=== PATIENT | female | born 1945 | race Caucasian/White ===

== ENCOUNTER → 2020-12-24 12:20 | Outpatient (CLI) | payer MEDICARE, SELFPAY ==
--- NOTE | ~2020-12-24 | DEXA_ITS ---
Bone Density Report Name: Angelita Hope Age: 75 Sex: Female Ethnicity: White Date of : 1945 Indication: postmenopausal; screening for osteoporosis; height loss; asthma or emphysema; hysterectomy; Referring Provider: Terence Dsouza Study: Bone densitometry was performed. Exam Date: December 24, 2020 Accession number: [id number] Bone Density: Region BMD T-score Z-score Classification AP Spine (L1, L2, L3) 1.048 0.3 2.6 Normal Femoral Neck (Left) 0.648 -1.8 0.2 Osteopenia Total Hip (Left) 0.731 -1.7 0.0 Osteopenia Femoral Neck (Right) 0.536 -2.8 -0.8 Osteoporosis Total Hip (Right) 0.689 -2.1 -0.3 Osteopenia Total Hip Mean 0.710 -1.9 -0.2 Osteopenia World Health Organization criteria for BMD impression classify patients as: Normal (T-score at or above -1.0), Osteopenia (T-score between -1.0 and -2.5), or Osteoporosis (T-score at or below -2.5). 10-year Fracture Risk: FRAX not reported because: Some T-score for Spine Total or Hip Total or Femoral Neck at or below -2.5 Clinical Information Provided by Patient: Has used the following medications: Vitamin D, Calcium Has the following medical conditions: Asthma or Emphysema, Hysterectomy Patient maximum height was 62.7 Menopause Age: 51 Does not regularly consume dairy products Drinks caffeinated beverages Onset of menses at age 14 Number of children 6 Missed period for more than 6 months in a row Impression: The patient has osteoporosis, based on the Right Femoral Neck T-score. Discussion: INCREASED RISK OF FRACTURE. BONE DENSITY IS UNDESIRABLY LOW AT ONE OR MORE SKELETAL SITES, CONSISTENT WITH POSTMENOPAUSAL OSTEOPOROSIS. This patient's lowest T-score meets the World Health Organization's (WHO) criteria for osteoporosis at one or more sites (T-score -2.5 or below). In untreated patients, the risk of osteoporotic fracture increases approximately two-fold for each 1.0 SD decrease in T-score. Low bone density is not the only risk factor for fracture; also consider factors such as patient's age, frailty or poor health, risk of falling, risk of injury, previous osteoporotic fracture, family history of osteoporosis, cigarette smoking, low body weight, etc. Not everyone with low bone mineral density has osteoporosis; osteomalacia and other metabolic bone disorders should also be considered. Patients who have osteoporosis should be evaluated for specific diseases and conditions (secondary causes) that may cause or contribute to bone loss. The [place] [employer]ocr[employer] (AACE) and National Osteoporosis Foundation (NOF) recommend pharmacologic intervention for all postmenopausal women whose T-score is in this range. The patient should follow a healthful lifestyle (good nutrition with adequate calcium and vitamin D, and appropriate weight-barber
== END ==
PROVIDERS: PCP Family Medicine; Visit Provider Physician Assistant Medical
DX: Z78.0 Asymptomatic menopausal state (principal); M85.89 Other specified disorders of bone density and structure, multiple sites; M81.0 Age-related osteoporosis without current pathological fracture
CPT/HCPCS: 77080

== ENCOUNTER 2021-02-17 12:45 | Outpatient (CLI) | payer MEDICARE, SELFPAY ==
--- NOTE | ~2021-02-17 | XR_ITS ---
XR chest 2V DATE: 02/17/2021 13:59 INDICATION: History of uterine cancer TECHNIQUE: PA and lateral views COMPARISON: None FINDINGS: Mild to moderate elevation of the right leaf of the diaphragm. Normal heart size. Is aortic unfolding and calcification. No hilar or mediastinal enlargement. No pulmonary infiltrate or consolidation, pleural effusion or pulmonary vascular congestion or pneumo thorax. Diffuse osteopenia. Degenerative spurring of the thoracic spine. IMPRESSION: Mild to moderate elevation right leaf of diaphragm No active cardiac pulmonary disease Aortic atherosclerosis Diffuse osteopenia Degenerative spurring of the thoracic spine. Reviewed, dictated and finalized at location B.
--- NOTE | ~2021-02-17 | MR_ITS ---
EXAMINATION: MR brain/brain stem wo con DATE: 02/17/2021 13:41 INDICATION: Unspecified dementia without behavioral disturbance. TECHNIQUE: Magnetic resonance imaging (MRI) of the brain and brainstem was performed without intraven ous contrast. Sequences included sagittal and axial T1-weighted FSE, axial diffusion-weighted FS EPI, axial T2*-weighted GRE, axial T2-weighted FLAIR Propeller, and axial T2-weighted Propeller. Apparent diffusion coefficient (ADC) maps were created. COMPARISON: None. FINDINGS: There are scattered areas of nonspecific increased T2-weighted signal intensity in the cere bral white matter and ismael. There is no intracranial hemorrhage, acute infarction, or abnormal intrac ranial mass lesion. The ventricles are normal in size. The orbits are normal. There is mild mucosal t hickening in the paranasal sinuses. The mastoid air cells are normal. IMPRESSION: 1. Mild nonspecific cerebral white matter disease and pontine disease, which likely represents chroni c small vessel ischemic disease. Reviewed, dictated and finalized at location A. IMPRESSION: 1. Mild nonspecific cerebral white matter disease and pontine disease, which scott asif represents chronic small vessel ischemic disease.
== END 2021-02-17 12:46 | disposition home or self-care (01) ==
PROVIDERS: PCP Family Medicine; Visit Provider Physician Assistant Medical
DX: F03.90 Unspecified dementia, unspecified severity, without behavioral disturbance, psychotic disturbance, mood disturbance, and anxiety (principal); I70.0 Atherosclerosis of aorta; M85.88 Other specified disorders of bone density and structure, other site; R93.0 Abnormal findings on diagnostic imaging of skull and head, not elsewhere classified
CPT/HCPCS: 70551; 71046

== ENCOUNTER 2022-07-11 09:03 | Outpatient (CLI) | payer MEDICARE, SELFPAY ==
--- NOTE | 2022-07-15 16:34 | WPDHOLTEREM ---
Holter/Event Monitor Holter/Event Monitor Date of procedure: 07/11/22 Holter/Event Procedure: 24 Hr Holter Monitor Indications: Palpitations Conclusion: 1. 24 hour holter monitor on 07/11/22. 2. Predominant rhythm is sinus rhythm. HR range 45-133 bpm; average HR 80 bpm. 3. There are 421 premature supraventricular complexes and 20 supraventricular couplets. There are 2 episodes of atrial tachycardia, fastest at 115 bpm and longest lasted 4 beats. 4. There are 9 premature ventricular complexes and 3 ventricular triplets. No ventricular tachycardia. 5. There is first degree AV blocks. No significant pauses greater than 2 seconds. 6. No symptoms available for correlation.
== END 2022-07-11 09:04 | disposition home or self-care (01) ==
PROVIDERS: PCP Family Medicine; Visit Provider Family Medicine
DX: R00.2 Palpitations (principal); I44.0 Atrioventricular block, first degree
CPT/HCPCS: 93225; 93226

== ENCOUNTER → 2022-08-19 12:32 | Outpatient (CLI) | payer MEDICARE, SELFPAY ==
--- NOTE | ~2022-08-19 | MM_ITS ---
EXAMINATION: MM screening chandrika BI w tamela HISTORY: Screening mammogram TECHNIQUE: Craniocaudal and mediolateral oblique 3-D tomosynthesis images were obtained and synthetic 2-D images were generated. CAD analysis was submitted and interpreted. COMPARISON: No prior mammogram is available for comparison at this institution. BREAST PARENCHYMAL COMPOSITION: The breasts are almost entirely fatty. FINDINGS: There is no evidence of suspicious mass, calcification, or architectural distortion to sugg est malignancy in either breast. There has been no suspicious interval change. IMPRESSION: 1. No mammographic evidence of malignancy. 2. Recommend routine screening mammography in one year. BI-RADS Category 1: Negative Reviewed, dictated and finalized at location A.
== END ==
PROVIDERS: PCP Family Medicine; Visit Provider Family Medicine
DX: Z12.31 Encounter for screening mammogram for malignant neoplasm of breast (principal)
CPT/HCPCS: 77063; 77067

== ENCOUNTER → 2023-05-11 11:08 | Outpatient (CLI) | payer MEDICARE, SELFPAY ==
--- NOTE | ~2023-05-11 | DEXA_ITS ---
Bone Density Report Name: JENN GOMEZ Age: 77 Sex: Female Ethnicity: White Date of : 1945 Indication: osteopenia; monitoring treatment; height loss; hysterectomy; postmenopausal Referring Provider: SAMMY VILLATORO Study: Bone densitometry was performed. Exam Date: May 11, 2023 Accession number: [id number] Bone Density: Region BMD T-score Z-score Classification AP Spine (L1, L2, L3) 1.113 0.9 3.3 Normal Femoral Neck (Left) 0.675 -1.6 0.6 Osteopenia Total Hip (Left) 0.770 -1.4 0.5 Osteopenia Femoral Neck (Right) 0.612 -2.1 0.0 Osteopenia Total Hip (Right) 0.653 -2.4 -0.5 Osteopenia Total Hip Mean 0.712 -1.9 0.0 Osteopenia World Health Organization criteria for BMD impression classify patients as: Normal (T-score at or above -1.0), Osteopenia (T-score between -1.0 and -2.5), or Osteoporosis (T-score at or below -2.5). 10-year Fracture Risk: FRAX not reported because: Treated for osteoporosis Previous Exams: Region Exam Age BMD T-score BMD Change BMD Change Date g/cm2 vs Baseline vs Previous AP Spine(L1, L2, L3) 05/11/2023 77 1.113 0.9 0.065* 0.065* 12/24/2020 75 1.048 0.3 Total Hip(Left) 05/11/2023 77 0.770 -1.4 0.039* 0.039* 12/24/2020 75 0.731 -1.7 Total Hip(Right) 05/11/2023 77 0.653 -2.4 -0.036* -0.036* 12/24/2020 75 0.689 -2.1 *Denotes significance at 95% confidence level, LSC for AP Spine = 0.022 g/cm2, LSC for Total Hip = 0.027 g/cm2 Clinical Information Provided by Patient: Is being treated for osteoporosis Has used the following medications: Vitamin D, Calcium, MTV, RX bone med name unknown Has the following medical conditions: Hysterectomy, asthma treated with OTC meds, cancer in the past Patient maximum height was 62.7 Menopause Age: 51 Does not regularly consume dairy products Drinks caffeinated beverages Onset of menses at age 14 Number of children 6 Missed period for more than 6 months in a row Impression: The patient has low bone mass, based on the Right Total Hip T-score. The BMD for the Total Hip(Right) decreased, changing by -0.036 since the last DXA exam. Discussion: SIGNIFICANT BONE LOSS OBSERVED. Adherence to therapy (including calcium and vitamin D intake) should be assessed. If compliance is not a factor, review management and exclusion of secondary causes of bone loss. It is important to ask patients whether they are taking their me
== END ==
PROVIDERS: PCP Family Medicine; Visit Provider Family Medicine
DX: M81.0 Age-related osteoporosis without current pathological fracture (principal); Z79.01 Long term (current) use of anticoagulants; M85.852 Other specified disorders of bone density and structure, left thigh; M85.851 Other specified disorders of bone density and structure, right thigh
CPT/HCPCS: 77080

== ENCOUNTER 2023-05-27 09:50 | Emergency (ER) | payer MEDICARE, SELFPAY ==
[2023-05-27 10:01] VITALS: BP 132/81; PULSE 67; RESP 16; TEMP 36.8; O2SAT 98
--- NOTE | 2023-05-27 10:19 | ED.URI ---
HPI - URI/Sore Throat General Chief Complaint: Upper Respiratory Infection Stated Complaint: Cough Source: patient, RN notes reviewed and old records reviewed Mode of arrival: ambulatory Limitations: no limitations History of Present Illness HPI Narrative: 77-year-old female presents with complaint of productive cough, congestion, sinus pressure, headache that started 3-4 weeks ago. Patient was seen in another urgent care that time and given amoxicillin 875mg for 10 days, patient states symptoms improved but never completely resolved. Patient states symptoms are worse now patient states coughing up green thick phlegm. MD elicited complaint: cough Onset (ago): week(s) (2-3) Consistency: constant Severity: moderate Description of mucous: green Related Data Home Medications Medication Instructions Recorded Confirmed mecobalamin (vitamin B12) 1,000 3,000 mcg sublingual DAILY 10/07/20 05/27/23 mcg disintegrating tablet,sublingual ascorbic acid (vitamin C) 250 mg 250 mg PO DAILY 07/04/22 05/27/23 tablet calcium 600 mg-D3 800 unit-mag11 1 tablet PO DAILY 07/04/22 05/27/23 50 kr-gijt-hchjyu-hayes-s.borat tablet (Caltrate 600-D Plus Minerals) wmyacrnm-pqf-thcst ac 400 2 tablet PO DAILY 07/04/22 05/27/23 mcg-calcium carb 500 mg-vit K1 20 mcg tablet (Women's 50 Plus Multivitamin) tpyulrwq-nqj-nakai5 250 mg-dha 90 1 cap PO DAILY 07/04/22 05/27/23 mg-epa 160 do-zbgo-ylgc-zeax capsule (Ocuvite Adult 50 Plus) Allergies Allergy/AdvReac Type Severity Reaction Status Date / Time atorvastatin Allergy Unknown cough Verified 05/27/23 10:14 codeine Allergy Unknown Unknown Verified 05/27/23 10:14 fentanyl Allergy Unknown Unknown Verified 05/27/23 10:14 levothyroxine sodium Allergy Unknown cough Verified 05/27/23 10:14 lisinopril Allergy Unknown cough Verified 05/27/23 10:14 metformin Allergy Unknown just Verified 05/27/23 10:14 doesn't feel right metoprolol Allergy Unknown cough Verified 05/27/23 10:14 Review of Systems Constitutional: Constitutional: Reports no additional constitutional complaints, Reports body ache(s), Denies chills, Reports fatigue, Denies fever(s) and Denies headache(s) Eyes: Eyes: Reports no additional eye complaints and Denies blurry vision ENT: Reports system reviewed and no additional complaints, except as documented, Denies vertigo, Denies dizziness, Denies ear discharge, Denies otalgia, Denies facial pain, Denies headache(s), Reports nasal congestion, Denies nasal discharge, Reports sinus pain, Reports sinus pressure and Denies sore throat Cardiovascular: Cardiovascular: Reports no additional cardiovascular complaints, Denies chest pain, Denies chest pain at rest, Denies rapid heart rate and Denies dyspnea Respiratory: Respiratory: Reports no additional respiratory complaints, Reports chest congestion, Reports cough, Denies pain on inspiration, Denies pain with cough and Denies dyspnea Gastrointestinal: Gastrointestinal: Denies abdominal pain, Denies diarrhea, Denies nausea and Denies vomiting Integumentary/Breasts: Skin/Breast: Denies rash Neurologic: Reports system reviewed and no additional complaints, except as documented, Denies vertigo, Denies dizziness and Denies headache(s) Endocrine: Endocrine: Denies fatigue [facility] Past Medical History Medical History Disorder of kidney and ureter, unspecified Endometrial cancer Malignant neoplasm of uterus, part unspecified Family History Family History Mother Hypertension Sibling Family history of type 2 diabetes mellitus Family history of respiratory disorder Family history of diabetes mellitus in first degree relative Patient's brother is Father Patient's father is in good health Other Diabetes mellitus Social History Social History (Reviewed 01/17/23 @ 13:12 by Mayuri Monroy
== END 2023-05-27 10:27 | disposition home or self-care (01) ==
PROVIDERS: Emergency Provider Registered Nurse; PCP Family Medicine
DX: J06.9 Acute upper respiratory infection, unspecified (principal); Z85.42 Personal history of malignant neoplasm of other parts of uterus
CPT/HCPCS: 99213; G0463

== ENCOUNTER 2023-07-29 11:00 | Emergency (ER) | payer MEDICARE, SELFPAY ==
[2023-07-29 11:26] VITALS: BP 148/94; PULSE 67; RESP 16; TEMP 37.3; O2SAT 99
--- NOTE | 2023-07-29 11:34 | ED.GENADULT ---
HPI - General Adult General Chief complaint: Upper Respiratory Infection Stated complaint: COUGH/COVID EXPOSURE Source: patient, RN notes reviewed and old records reviewed Mode of arrival: ambulatory Limitations: no limitations History of Present Illness HPI narrative: 77-year-old female presents to [facility] requesting COVID testing. Patient states has been tested earlier today and was positive. Patient states has had a cough for approximately 2 weeks without them for allergies. Patient denies any other symptoms. Patient is requesting back Slo-bid if positive. Related Data Home Medications Medication Instructions Recorded Confirmed mecobalamin (vitamin B12) 1,000 3,000 mcg sublingual DAILY 10/07/20 07/29/23 mcg disintegrating tablet,sublingual ascorbic acid (vitamin C) 250 mg 250 mg PO DAILY 07/04/22 07/29/23 tablet calcium 600 mg-D3 800 unit-mag11 1 tablet PO DAILY 07/04/22 07/29/23 50 pr-nrjb-ukooqp-hayes-s.borat tablet (Caltrate 600-D Plus Minerals) hpylauqa-dgm-axjtl ac 400 2 tablet PO DAILY 07/04/22 07/29/23 mcg-calcium carb 500 mg-vit K1 20 mcg tablet (Women's 50 Plus Multivitamin) duhzombp-hop- 250 mg-dha 90 1 cap PO DAILY 07/04/22 07/29/23 mg-epa 160 bu-onbx-vhzc-zeax capsule (Ocuvite Adult 50 Plus) Allergies Allergy/AdvReac Type Severity Reaction Status Date / Time atorvastatin Allergy Unknown cough Verified 07/29/23 11:25 codeine Allergy Unknown Unknown Verified 07/29/23 11:25 fentanyl Allergy Unknown Unknown Verified 07/29/23 11:25 levothyroxine sodium Allergy Unknown cough Verified 07/29/23 11:25 lisinopril Allergy Unknown cough Verified 07/29/23 11:25 metformin Allergy Unknown just Verified 07/29/23 11:25 doesn't feel right metoprolol Allergy Unknown cough Verified 07/29/23 11:25 Review of Systems Constitutional: Constitutional: Reports no additional constitutional complaints, Denies body ache(s), Denies chills, Denies fatigue, Denies fever(s) and Denies headache(s) Eyes: Eyes: Reports no additional eye complaints and Denies blurry vision ENT: Reports system reviewed and no additional complaints, except as documented, Denies vertigo, Denies dizziness, Denies ear discharge, Denies otalgia, Denies facial pain, Denies headache(s), Denies nasal congestion, Denies nasal discharge, Denies sinus pain, Denies sinus pressure and Denies sore throat Cardiovascular: Cardiovascular: Reports no additional cardiovascular complaints, Denies chest pain, Denies chest pain at rest, Denies rapid heart rate and Denies dyspnea Respiratory: Respiratory: Reports no additional respiratory complaints, Denies chest congestion, Reports cough, Denies pain on inspiration, Denies pain with cough and Denies dyspnea Gastrointestinal: Gastrointestinal: Denies abdominal pain, Denies diarrhea, Denies nausea and Denies vomiting Integumentary/Breasts: Skin/Breast: Denies rash Neurologic: Reports system reviewed and no additional complaints, except as documented, Denies vertigo, Denies dizziness and Denies headache(s) Endocrine: Endocrine: Denies fatigue PMF Past Medical History Medical History Disorder of kidney and ureter, unspecified Endometrial cancer Malignant neoplasm of uterus, part unspecified Family History Family History Mother Hypertension Sibling Family history of type 2 diabetes mellitus Family history of respiratory disorder Family history of diabetes mellitus in first degree relative Patient's brother is Father Patient's father is in good health Other Diabetes mellitus Social History Social History Smoking status: Unknown if ever smoked Alcohol intake: never Lack of Transportation: No Lack of Food: Never True Current Housing: I Have Housing Concerned Abou
== END 2023-07-29 12:05 | disposition home or self-care (01) ==
PROVIDERS: Emergency Provider Registered Nurse; PCP Family Medicine
DX: J30.2 Other seasonal allergic rhinitis (principal); Z20.822 Contact with and (suspected) exposure to COVID-19; Z85.42 Personal history of malignant neoplasm of other parts of uterus
CPT/HCPCS: 87426; 87804; 99213; G0463

== ENCOUNTER 2023-10-06 07:51 | Outpatient (CLI) | payer MEDICARE, SELFPAY ==
[2023-10-06 15:38] LABS: Anion Gap 6 mmol/L (4-12); Blood Urea Nitrogen 20 mg/dL (7-17); Calcium 9.6 mg/dL (8.4-10.2); Carbon Dioxide 32 mmol/L (22-30); Chloride 103 mmol/L (98-107); Estimated Glomerular Filt Rate > 60; Glucose 81 mg/dL (65-110); Potassium 4.3 mmol/L (3.4-5.0); Sodium 141 mmol/L (137-145)
[2023-10-06 16:22] LABS: Creatinine Urine 56.3 mg/dL
[2023-10-06 16:29] LABS: MALB Creatinine Ratio 21.3 mg/g (0-30)
[2023-10-06 16:43] LABS: Hemoglobin A1C 5.9 % (<5.7)
== END 2023-10-06 07:52 | disposition home or self-care (01) ==
PROVIDERS: PCP Family Medicine; Visit Provider Nurse Practitioner Family
DX: E11.9 Type 2 diabetes mellitus without complications (principal)
CPT/HCPCS: 36415; 80048; 82043; 83036

== ENCOUNTER 2025-04-11 00:55 | Day surgery (SDC) | payer MEDICARE, SELFPAY ==
--- NOTE | 2025-04-02 10:54 | PC.NURSE ---
[facility] has started construction of its new state of the art ER which will open Spring 2026. With this, we anticipate parking may be a challenge for some our surgical patients and families. Parking spaces are limited but are available for all Surgical, obstetrics, and ER patients sharing this lot. If you arrive and find you are having a hard time finding a parking space, please note that we understand the challenges, please drive around the hospital and park near Hospital Entrance 1. When you enter this entrance, you can ask a volunteer to direct or take you back to the surgical waiting area to check in. We appreciate everyone?s understanding of these expected challenges while we build for your future. Report to the Outpatient Waiting Room, entrance under the green pavilion located off [address], at time __8:15 AM on date __04/11/25 . Planned Procedure Time: __10:15 AM .? Time changes happen often and if your time is changed the preop area will call you the afternoon before. NOTHING TO EAT AFTER MIDNIGHT , NOTHING TO DRINK 8 HOURS PRIOR TO SURGERY PER DR HUSAIN - You and your visitor will be asked to self-screen and do not enter if you have any COVID symptoms. Please call surgeon if you need to reschedule. - A mask is optional within the hospital at this time. Take only the following medications with a SIP of water on the morning of surgery: ___INHALER IF NEEDED DO NOT STOP ANY OF YOUR OTHER PRESCRIPTION MEDICATIONS PRIOR TO SURGERY EXCEPT THE FOLLOWING Hold all vitamins and supplements for 3 days per anesthesiologist.LAST DOSE 04/07/25 Medications to discontinue per physician NONE Please no make-up, nail malagasy, hairspray, perfume, deodorant, or body powder the day of surgery.? No jewelry (including any body piercings) or valuables the day of surgery, leave them at home.? Please take a shower or bath the night before, or the morning of, surgery with an antibacterial soap.? Wear comfortable, loose fitting clothing.? Children are encouraged to wear pajamas. - Jewelry must be removed prior to entering the operating room.? Rings and piercings that are not removed may be cut off. - The hospital will not accept responsibility for valuables.? - Please leave all valuables, including medications, at home the day of surgery. If you are going home after surgery, a licensed driver license technician must drive you home.? - NO public transportation without another adult if you receive anesthesia. - We recommend that an adult stay with you for 24 hours following discharge. - We also recommend that you do not drive, make important decision, drink alcoholic beverages, or take any drugs that were not prescribed by your health care provider for at least 24 hours after your discharge time. For Pediatric surgeries, we recommend two adults accompany the child home. Follow any additional instructions given to you from your surgeon. Telephone instructions given to __DAUGHTER IN LAW_GONZALEZ ROSALES and asked if any additional questions and then verbalized understanding. Patient advised to call surgeon office or pre surgery nurse liaison [phone] if any additional questions.
[2025-04-02 11:21] VITALS: BMI 30.3
--- NOTE | 2025-04-11 06:48 | P.OP_ITS ---
Procedure Note - Detailed Date of Procedure 04/11/25 Pre-op Diagnosis Mass Rt Thigh Post-op Diagnosis Same Procedure Performed excision right thigh mass Surgeon Gerald Bhatt MD Pharmacy Buyer freda kaplan pa-c Anesthesia MAC Description of Procedure Patient was seen in the preoperative holding area where the right thigh mass was marked and the consent form was signed. Patient was taken back to the operating room on the stretcher in the right lateral decubitus position. Time-out was performed with Anesthesia, surgeon, and staff agree on patient's name, site, and surgery to be performed. SCDs were placed on the lower extremities and inflated. Antibiotics given IV. After anesthesia administered sedation I injected 8 cc of 1% lidocaine with epinephrine and 0.5% Marcaine plain. The surgical site was prepped and draped in the usual sterile fashion. I proceeded with making elliptical incision around the thinned affected skin overlying the mass extending proximally and distally for expected dog-ears to improve closure. Littler scissors were used to spread through subcutaneous tissue down to and circumferentially dissecting around the cyst-like mass. Bovie cautery was used to further resect the mass from the subcutaneous tissue. I irrigated with normal saline. Hemostasis was obtained with Bovie cautery. Closure with 3-0 Vicryl for dermis and 3-0 monocryl for subcuticular. length of closure was 6cm A dressing of Mastisol, Steri-Strips, 4 x 4, and pressure dressing was applied. The patient was awakened from anesthesia and transferred to the recovery room in stable condition. Complications: None Estimated blood loss: 2 cc Disposition: Patient tolerated the procedure well and will go home later today Freda Kaplan PA-C was essential for positioning, retraction, closure and dressing placement. [facility] [place] - Charge Forward: Surgery Billing ([id number] same for freda adding )
--- NOTE | 2025-04-11 06:48 | WPDHPUPDATE1 ---
History and Physical Update Update Date/Time: 04/11/25 06:48 Patient seen and examined in pre-operative holding area. No interval change in medical history or symptoms. Patient recalls previous discussion of benefits and alternatives to procedure. Continues to desire to proceed with right thgh mass excision . Reviewed procedure, post-op expectations and risks including but not limited to bleeding, infection, injury to tendon/nerve/vessel, decreased hand function, stiffness, RSD, no change or worsening of symptoms, recurrence. I discussed the possible use of assistants and their participation in the case. Patient stated understanding and signed the consent form wishing to proceed.
[2025-04-11 08:45] VITALS: BP 157/60; PULSE 60; RESP 16; TEMP 36.6; O2SAT 96
[2025-04-11] MEDS: LACTATED RINGERS 1,000 ML 30 ML IV CONT (08:45)
[2025-04-11] MEDS: ACETAMINOPHEN 500 MG TABLET 1000 MG PO (08:45)
--- NOTE | 2025-04-11 08:49 | WPDANESEPPF ---
Anes - Initial Pre Proc Eval Procedure: Operation Date: 04/11/25 10:15 Proposed Procedures p Right Posterior Thigh Mass Excision - Gerald Bhatt MD Date/Time: 04/11/25 08:49 Surgeon: Gerald Bhatt MD Pre Op Diagnosis: Mass Rt Thigh Patient Data Age: 79 Gender: F Height: 1.6 m Weight: 77.6 kg Allergies Allergy/AdvReac Type Severity Reaction Status Date / Time atorvastatin Allergy Unknown cough Verified 04/10/25 12:55 codeine Allergy Unknown Unknown Verified 04/10/25 12:55 fentanyl Allergy Unknown Unknown Verified 04/10/25 12:55 levothyroxine sodium Allergy Unknown cough Verified 04/10/25 12:55 lisinopril Allergy Unknown cough Verified 04/10/25 12:55 metformin Allergy Unknown just Verified 04/10/25 12:55 doesn't feel right metoprolol Allergy Unknown cough Verified 04/10/25 12:55 Home Medications ?Medication ?Instructions ?Recorded ?Confirmed ?Type mecobalamin (vitamin B12) 1,000 3,000 mcg sublingual DAILY 10/07/20 04/02/25 History mcg disintegrating tablet,sublingual ascorbic acid (vitamin C) 250 mg 250 mg PO DAILY 07/04/22 04/02/25 History tablet calcium 600 mg-D3 800 unit-mag11 1 tablet PO DAILY 07/04/22 04/02/25 History 50 fe-pgrb-pntmrr-hayes-s.borat tablet (Caltrate 600-D Plus Minerals) burbllka-qju-wrzud ac 400 2 tablet PO DAILY 07/04/22 04/02/25 History mcg-calcium carb 500 mg-vit K1 20 mcg tablet (Women's 50 Plus Multivitamin) iwgdpgbn-pzs-cxean7 250 mg-dha 90 1 cap PO DAILY 07/04/22 04/02/25 History mg-epa 160 hx-uslo-sqer-zeax capsule (Ocuvite Adult 50 Plus) cholecalciferol (vitamin D3) 125 5,000 unit PO DAILY #90 caps 05/19/23 04/02/25 Rx mcg (5,000 unit) capsule amlodipine 2.5 mg tablet 5 mg (2 x 2.5 mg) PO DAILY #180 08/08/23 04/02/25 Rx tabs albuterol sulfate 90 mcg/actuation 1 inh inhalation Q4H PRN shortness 10/14/24 04/02/25 Rx aerosol inhaler (Ventolin HFA) of breath or wheezing #6.7 grams losartan 25 mg tablet 25 mg PO DAILY #90 tabs 10/14/24 04/02/25 Rx alendronate 70 mg tablet (Fosamax) 70 mg PO WEEKLY #4 tabs 02/10/25 04/02/25 Rx benzonatate 200 mg capsule 200 mg PO TID #30 caps 02/15/25 04/02/25 Rx Patient hx anesthesia problems: none Family hx anesthesia problems: none Results Review: All pre-operative results and documents have been reviewed as part of the pre-operative evaluation. [facility] Past Medical History Medical History Disorder of kidney and ureter, unspecified Endometrial cancer Malignant neoplasm of uterus, part unspecified Family History Family History Mother Hypertension Sibling Family history of type 2 diabetes mellitus Family history of respiratory disorder Family history of diabetes mellitus in first degree relative Patient's brother is Father Patient's father is in good health Other Diabetes mellitus Social History Social History (Updated 02/17/25 @ 09:22 by Deandra Trujillo) Social History: Caffeine-none Smoking status: Never smoker Alcohol intake: never Substance use: never Substance use type: does not use Lack of Transportation: No Lack of Food: Never True Current Housing: I Have Housing Concerned About Future Housing: No Difficulty Paying Gas/Electric Bills: No Difficulty Paying for Meds: No Currently Unemployed: No Education: Trade/Vocational Certificate Difficulty w/ Childcare or Family Care: No Living arrangements: with family Spiritual care concerns: No Anes - Eval Final PreProcedure Day of Procedure 04/11/25 08:49 Patient weight: obese Heart: regular rate and rhythm Lungs: clear to auscultation Airway: Mallampati scale class II Neurological: alert and oriented Last oral intake: >/= 8 hours ASA classification: III Emergent: no Anesthetic plan: proceed Anesthesia type and monitoring: general GIVS and standard monitoring Results Review: All pre-operative results and documents have been reviewed as part of the pre-operative evaluation. Informed Consent: The patient's anesthetic plan and its attendant risks and benefits were discussed with the patient/family/POA. Questions were solicited and answers provided to the satisfaction of the patient/family/POA.
[2025-04-11] MEDS: ceFAZolin 2 GM in SODIUM CHLORIDE 0.9% IV 50 ML 100 ML IVPB (10:16)
[2025-04-11] MEDS: LIDO 1%/EPINEPHRINE 1:100,000 50 ML VIAL (10:16)
--- NOTE | 2025-04-11 10:29 | S_PTH ---
PATIENT: Angelita Hope LOC: [facility] U#:[id number] AGE/SX: 79/F ROOM: RE04/11/[address]: Gerald Bhatt MD : 1945 BED: DIS: 04/11/2025 SPEC #: [id number] RECD: 04/11/25 11:37 STATUS: ABDON REDennis #: [id number] UMA: 04/11/25 10:[address]: Gerald Bhatt DEPT: [facility] Surgical RECD BY: Karey Orellana ENTERED: 04/11/25 11:38 SP TYPE: Surgical OTHR DR: Zeina Son MD Tissues: A - Mass Procedures: Hematoxylin and Eosin Stain Gross and Microscopic Level 3
[2025-04-11 10:40] VITALS: BP 133/56; PULSE 69; RESP 14; O2SAT 100
[2025-04-11 11:00] VITALS: BP 109/43; PULSE 56; O2SAT 96
[2025-04-11 11:30] VITALS: BP 131/82; PULSE 78
== END 2025-04-11 12:00 | disposition home or self-care (01) ==
PROVIDERS: PCP Family Medicine; Visit Provider Plastic Surgery
PROC: (CPT 11406; principal; 2025-04-11 10:15)
DX: L72.9 Follicular cyst of the skin and subcutaneous tissue, unspecified (principal)
CPT/HCPCS: 11406; 12032; 88304; J0690; A9270; J2003; J2004; J2250; J2405; J2704; J3010; J7120